=== PATIENT | male | born 1990 | race Caucasian/White ===

== ENCOUNTER 2025-04-15 17:28 | Inpatient (IN) | payer OTHER ==
[~2025-04-15] VITALS: Ht 180.3 cm; Wt 89.3 kg
[2025-04-15] MEDS: SODIUM CHLORIDE 0.9% 1,000 ML IV ONE (19:29)
[2025-04-15 19:33] LABS: PLATELET COUNT (AUTO) 239 K/uL (150-450); RED BLOOD CELL COUNT(AUTO) 3.90 MIL/uL (4.50-5.90); RED CELL DISTRIBUTION WIDTH 13.5 % (11.5-14.5); WHITE BLOOD COUNT (AUTO) 6.5 K/uL (4.5-11.0)
[2025-04-15 19:38] LABS: COVID AG,FIA SOURCE NASAL SWAB
[2025-04-15 19:39] LABS: CALCIUM, TOTAL 8.5 mg/dL (8.8-10.5); CREATININE 0.64 mg/dL (0.60-1.30); GLOMERULAR FILTR. RATE CALC > 60 mL/min (>60); GLUCOSE,RANDOM 94 mg/dL (70-110); SODIUM SERUM 137 mmol/L (136-145); UREA NITROGEN, BLOOD 13 mg/dL (7-18)
[2025-04-15] MEDS: VANCOMYCIN 1GM/WATER(PEG/NADA) 200 ML IV ONE (19:42)
[2025-04-15 19:55] LABS: SARS-COV2 (COVID) ANTIGEN,FIA Negative (Negative)
[2025-04-15] MEDS ORDERED: ONDANSETRON HCL 4 MG/2 ML VIAL IVP PRN (21:00)
[2025-04-15] MEDS ORDERED: MAGNESIUM HYDROXIDE SUSPENSION 30 ML UDCUP PO PRN (21:00)
[2025-04-15] MEDS ORDERED: LORazepam 2 MG/ML VIAL IVP PRN (21:00)
[2025-04-15] MEDS ORDERED: HYDROCODONE/ACETAMINOPHEN 5-325 MG TABLET PO PRN (21:00)
[2025-04-15] MEDS ORDERED: BISACODYL 10 MG RECTAL RECTAL SUPPOSITORY PR PRN (21:00)
[2025-04-15] MEDS ORDERED: MORPHINE SULFATE 4 MG/ML SYRINGE IVP PRN (21:00)
[2025-04-15] MEDS ORDERED: ACETAMINOPHEN 325 MG TABLET PO PRN (21:00)
[2025-04-15] MEDS: DOCUSATE SODIUM 100 MG CAPSULE PO SCH (21:00)
[2025-04-15] MEDS: VANCOMYCIN 500 MG/WATER(PEG) 100 ML IV ONE (21:51)
[2025-04-15 23:01] VITALS: BP 113/77; PULSE 94; RESP 18; TEMP 98.4; O2SAT 100
[2025-04-16] MEDS: HEPARIN SODIUM,PORCINE 5,000 UNITS/ML VIAL SQ SCH (00:05)
[2025-04-16 03:55] VITALS: BP 130/69; PULSE 94; RESP 18; TEMP 98.6; O2SAT 97
[2025-04-16 07:15] LABS: CALCIUM, TOTAL 7.8 mg/dL (8.8-10.5); CREATININE 0.58 mg/dL (0.60-1.30); GLOMERULAR FILTR. RATE CALC > 60 mL/min (>60); GLUCOSE,RANDOM 87 mg/dL (70-110); SODIUM SERUM 138 mmol/L (136-145); UREA NITROGEN, BLOOD 11 mg/dL (7-18)
[2025-04-16 07:21] LABS: PLATELET COUNT (AUTO) 218 K/uL (150-450); RED BLOOD CELL COUNT(AUTO) 3.80 MIL/uL (4.50-5.90); RED CELL DISTRIBUTION WIDTH 13.5 % (11.5-14.5); WHITE BLOOD COUNT (AUTO) 5.7 K/uL (4.5-11.0)
[2025-04-16] MEDS: VANCOMYCIN 1.25 GM/WATER(PEG) 250 ML IV SCH (08:00)
[2025-04-16] MEDS ORDERED: SODIUM CHLORIDE 0.9% 500 ML IV ONE (08:51)
[2025-04-16 08:56] VITALS: BP 126/68; PULSE 88; RESP 18; TEMP 97.8; O2SAT 96
[2025-04-16] MEDS: PANTOPRAZOLE SODIUM 40 MG DR TABLET PO SCH (10:03)
[2025-04-16 15:46] LABS: APPEARANCE,URINE CLEAR (CLEAR); GLUCOSE, URINE (UA) NEGATIVE (NEGATIVE); LEUKOCYTE ESTERASE ,URINE NEGATIVE (NEGATIVE); NITRATE,URINE NEGATIVE (NEGATIVE); OCCULT BLOOD,URINE NEGATIVE (NEGATIVE); PH,URINE DRUG SCREEN 7.0 (5.0-8.0); SPECIFIC GRAVITIY, URINE 1.015 (1.003-1.030)
[2025-04-16 15:55] LABS: ALCOHOL, URINE DRUG SCREEN NEGATIVE (NEGATIVE); AMPHET/METH SCREEN,URINE POSITIVE (NEGATIVE); BARBITURATE SCREEN, URINE NEGATIVE (NEGATIVE); CANNABINOID SCREEN,URINE NEGATIVE (NEGATIVE); COCAINE SCREEN,URINE NEGATIVE (NEGATIVE); METHADONE SCREEN, URINE NEGATIVE (NEGATIVE)
[2025-04-16] MEDS: ZOLPIDEM TARTRATE 5 MG TABLET PO PRN (20:17)
[2025-04-16 20:55] VITALS: BP 124/71; PULSE 85; RESP 18; TEMP 98.6; O2SAT 96
[2025-04-17 05:28] VITALS: BP 119/68; PULSE 86; RESP 18; TEMP 98.1; O2SAT 98
[2025-04-17 07:26] LABS: CALCIUM, TOTAL 8.3 mg/dL (8.8-10.5); CREATININE 0.70 mg/dL (0.60-1.30); GLOMERULAR FILTR. RATE CALC > 60 mL/min (>60); GLUCOSE,RANDOM 89 mg/dL (70-110); SODIUM SERUM 138 mmol/L (136-145); UREA NITROGEN, BLOOD 12 mg/dL (7-18)
[2025-04-17 08:35] VITALS: BP 122/68; PULSE 89; RESP 19; TEMP 98.1; O2SAT 98
[2025-04-17 08:35] LABS: PLATELET COUNT (AUTO) 276 K/uL (150-450); RED BLOOD CELL COUNT(AUTO) 4.05 MIL/uL (4.50-5.90); RED CELL DISTRIBUTION WIDTH 13.3 % (11.5-14.5); WHITE BLOOD COUNT (AUTO) 5.2 K/uL (4.5-11.0)
[2025-04-17 09:07] VITALS: BP 119/76; PULSE 89; RESP 20; TEMP 98.2; O2SAT 98
[2025-04-17 17:12] VITALS: BP 121/74; PULSE 86; RESP 18; TEMP 98; O2SAT 98
[2025-04-17 20:00] VITALS: BP 118/74; PULSE 68; RESP 18; TEMP 98.6; O2SAT 99
[2025-04-18 04:00] VITALS: BP 130/83; PULSE 79; RESP 18; TEMP 98.4; O2SAT 98
[2025-04-18 06:25] LABS: PLATELET COUNT (AUTO) 306 K/uL (150-450); RED BLOOD CELL COUNT(AUTO) 4.39 MIL/uL (4.50-5.90); RED CELL DISTRIBUTION WIDTH 13.2 % (11.5-14.5); WHITE BLOOD COUNT (AUTO) 7.3 K/uL (4.5-11.0)
[2025-04-18 06:31] LABS: CALCIUM, TOTAL 8.4 mg/dL (8.8-10.5); CREATININE 0.54 mg/dL (0.60-1.30); GLOMERULAR FILTR. RATE CALC > 60 mL/min (>60); GLUCOSE,RANDOM 89 mg/dL (70-110); SODIUM SERUM 141 mmol/L (136-145); UREA NITROGEN, BLOOD 11 mg/dL (7-18)
[2025-04-18 08:42] VITALS: BP 125/71; PULSE 70; RESP 18; TEMP 97.7; O2SAT 97
[2025-04-18 20:00] VITALS: BP 116/60; PULSE 73; RESP 18; TEMP 98; O2SAT 97
[2025-04-19 04:00] VITALS: BP 106/60; PULSE 65; RESP 18; TEMP 98.2; O2SAT 99
[2025-04-19 07:11] LABS: CALCIUM, TOTAL 8.7 mg/dL (8.8-10.5); CREATININE 0.71 mg/dL (0.60-1.30); GLOMERULAR FILTR. RATE CALC > 60 mL/min (>60); GLUCOSE,RANDOM 91 mg/dL (70-110); SODIUM SERUM 140 mmol/L (136-145); UREA NITROGEN, BLOOD 10 mg/dL (7-18)
[2025-04-19 08:52] VITALS: BP 122/80; PULSE 73; RESP 18; TEMP 97.9; O2SAT 98
[2025-04-19] MEDS: LIDOCAINE 2% 6 ML JELLY TP ONE (15:51)
[2025-04-19 20:00] VITALS: BP 109/55; PULSE 74; RESP 18; TEMP 97.3; O2SAT 97
[2025-04-19] MEDS: VANCOMYCIN 1GM/WATER(PEG/NADA) 200 ML IV SCH (23:41)
[2025-04-20] MEDS ORDERED: LINE600T14 PO (14:45)
[2025-04-20] MEDS ORDERED: CEPH-558 PO (14:46)
[2025-04-20 19:41] VITALS: BP 134/80; PULSE 69; RESP 18; TEMP 98.9; O2SAT 96
[2025-04-21 08:00] VITALS: BP 104/64; PULSE 68; RESP 20; TEMP 98.1; O2SAT 98
== END 2025-04-21 14:56 | DRG 571 ==
LOC: EMS 17:35 → EDH 20:58 → 6S 22:42
PROVIDERS: ADMIT Internal Medicine; ATTEND Internal Medicine
PROC: 05HD33Z Insertion of Infusion Device into Right Cephalic Vein, Percutaneous Approach (ICD-10-PCS; principal; 2025-04-17)
PROC: B54MZZA Ultrasonography of Right Upper Extremity Veins, Guidance (ICD-10-PCS; 2025-04-17)
PROC: 0JBD0ZZ Excision of Right Upper Arm Subcutaneous Tissue and Fascia, Open Approach (ICD-10-PCS; 2025-04-19)
DX: L03.113 Cellulitis of right upper limb (principal); F11.23 Opioid dependence with withdrawal; L03.115 Cellulitis of right lower limb; L03.116 Cellulitis of left lower limb; L03.114 Cellulitis of left upper limb; F15.10 Other stimulant abuse, uncomplicated; Z20.822 Contact with and (suspected) exposure to COVID-19
CPT/HCPCS: 36245; 36569; 76937; 80048; 80202; 80307; 81003; 85025; 87040; 87070; 87186; 87205; 96365; 96367; 99285; G0480; J1644; J7030; J7040